=== PATIENT | male | born 1945 | race Caucasian/White ===

== ENCOUNTER 2021-05-04 12:30 | Outpatient (RCR) | payer MEDICARE, SELFPAY ==
--- NOTE | 2021-03-16 13:48 | PTOPEVAL ---
Thank you for referring Jose Martin Julian to [facility] [place] The patient is scheduled to be seen for therapy? 1x/week for 6 weeks. Please review, sign, date and return this plan of care BRIGITTE. I agree with and certify that the following plan of care is medically necessary. Referring Physician Date Attending Provider: Trevor Knapp Problem Diagnosis OA of hips Onset chronic Subjective Information He wanting exercises to Query Text:As Reported By Patient/ improve his bone density. He Family denies any problems with normal daily task, lifting or walking. He does not go to the gym due to mask requirement. He does Shoulder rotation with red band with increased pain. 15# for rowing. Core stability ex with partial crunch hands behind his back, side planks, and quadaruped opposite arm / leg lifts. He rides a bike a 45-1 hr, but does not stretch. He was stretching with a strap when he over did and hurt his hamstring. He performs exercises 4x/wk for 2 yrs. Pain Assessment Timing of Pain Assessment Assessment Self Report Self Report Pain Level 0 Cervical and Lumbar ROM Lumbar ROM Lumbar Flexion Active Mid Conteh:Hands to: Lumbar Comments no back pain with motion, 75% of flex/ext normal rotation- no pain Cervical and Lumbar Muscle Testing Lumbar Strength Upper Abdominal Strength 3+Fair+ Lower Extremity Muscle Strength Testing General Lower Extremity Strength Gross Lower Extremity Strength grossly 5/5 except hip abduction 3+/5 Muscle Length Testing Muscle Length Testing Two-Joint Hip Flexor Shortened Muscles Short (R) Iliopsoas,Short (L) Iliopsoas,Short (R) Rectus Femoris,Short (L) Rectus Femoris,Short (R) Ilial Tib Band,Short (L) Ilial Tib Band Piriformis w/Hip Flexion >90 Degrees (R) Moderate Tightness,(L) Moderate Tightness Right Straight Leg Raise Muscle Length ( 80 degrees) Left Straight Leg Raise Muscle Length ( 70 degrees) Left Hamstring Length -40:(90 - 90 Position) Right Hamstring Length -40:(90 - 90 Position) Posture Posture Standing Position
--- NOTE | 2021-05-04 15:47 | PTOPEVAL ---
Physical Therapy Progress Note Thank you for referring Jose Martin Julian to [facility].?Pt has been instructed in a HEP with performance 3x/wk. He demonstrates improved body awareness and understanding of proper position with strengthening exercises. He has partially achieved his therapy goals at this time. Will hold chart open for 30 day for possible need to return for additional skilled teaching on HEP. If he does not return this note will be his discharge summary. Please review, sign, date and return this plan of care BRIGITTE. I agree with and certify that the following plan of care is medically necessary. Referring Physician Date Attending Provider: Trevor Knapp Diagnosis OA of hips Onset chronic Subjective Information He reports increased knee pain Query Text:As Reported By Patient/ with initially bike riding Family but improves after 10 min. He is applying a pain cream to his knee/lower legs. He c/o right shoulder pain with lifting task. He denies any problems with normal daily task, lifting or walking. He does feel like he is a bit stronger. He has returned to the gym yet. He performs HEP 3x/wk. Pain Assessment Left Knee(s) Reported Pain Level 0 Lowest Pain Intensity 0 Greatest Pain Intensity 4 Cervical and Lumbar ROM Lumbar ROM Lumbar Flexion Active Ankle:Hands to: Lumbar Comments no back pain with motion Lower Extremity Muscle Strength Testing General Lower Extremity Strength Gross Lower Extremity Strength hip abduction 3+/5 Muscle Length Testing Muscle Length Testing Two-Joint Hip Flexor Shortened Muscles Short (R) Iliopsoas,Short (L) Iliopsoas,Short (R) Rectus Femoris,Short (R) Ilial Tib Band,Short (L) Ilial Tib Band Piriformis w/Hip Flexion >90 Degrees (R) Mild Tightness,(L) Mild Tightness Right Straight Leg Raise Muscle Length ( 85 degrees) Left Straight Leg Raise Muscle Length ( 80 degrees) Left Hamstring Length -35:(90 - 90 Position) Right Hamstring Length -30:(90 - 90 Position) Special Tests-Lower Extremity Hip Special Tests Trendelenburg Sign Positive Left,Positive Right NINA Negative Left,Negative Right Hip Special Test Comments functional squats: slight forward weight shift, proper LE position and control functional lunges: cues for increased ELLI, trunk position
--- NOTE | 2021-06-04 09:40 | PCPTNOTE ---
Admitting Provider: Attending Provider: Trevor Knapp Patient:Jose Martin Julian Date of :1945 Discharge Summary Patient has not returned for any further treatments since 05/04/2021, therefore he will be discharged at this time. Patient?s initial visit was on 03/16/2021 11:30 and she had a total of 6 visits. The goals have been partially met. Thank you for referring this patient to [facility]. Please review, sign, date and return this discharge summary BRIGITTE. I have been updated about the patient's current status and I agree with discharge from the above service at this time. Referring Physician Date
== END 2021-06-05 09:12 | disposition home or self-care (01) ==
LOC: ANHPT 12:30
DX: M16.0 Bilateral primary osteoarthritis of hip (principal)
CPT/HCPCS: 97110; 97162